=== PATIENT | female | born 2005 | race Caucasian/White ===

== ENCOUNTER 2024-10-08 00:55 | Emergency (ER) | payer MEDICAID, SELFPAY ==
[2024-10-08 00:55] VITALS: BMI 22.7
[2024-10-08 01:36] VITALS: BP 121/71; PULSE 84; RESP 18; TEMP 36.6; O2SAT 98
--- NOTE | 2024-10-08 01:36 | XR_ITS ---
Examination: CT brain head without contrast. 2-D sagittal coronal reconstructions Date and time of exam:October 08, 2024 at 0157 hrs. Indications: Injury to the forehead today Left-sided head pain CTDI: vol (mGy):45.5 DLP: (mGycm):969 Technique: Multiple CT axial sections of the brain have been obtained, 5 mm slice thickness. Contrast has not been administered. 2-D sagittal, coronal reconstructions have been obtained Low dose protocols were performed. One or more of the following dose reduction techniques were used; automated exposure control, adjustment of the mA and/or KV according to patient size, use of iterative reconstruction technique. Findings: No significant ventricular enlargement. Intra-axial or extra-axial hemorrhage density is not seen. No mass effect or midline shift Basal cisterns are not remarkable. Fourth ventricle is midline. Cranial vault intact. Acute maxillary sinusitis Impression: Negative for acute hemorrhage, mass effect or midline shift
--- NOTE | 2024-10-08 01:37 | PD.EDHEAD ---
ED Head Injury RME/HPI General Chief complaint: Head Injury Stated complaint: HEAD INJURY Time Seen by Provider: 10/08/24 01:10 Arrival date/time: 10/08/24 00:55 19 year old female present to emergency room with c/o of head injury while moving furniture. patient report + LOC. denies any nausea,vomiting, neck pain/injury LOCATION: top of scalp SEVERITY: Symptoms are described as being severe with limitations on activities of daily living QUALITY: Symptoms are described as being dull or achy CONTEXT: hit top of head, + loc <1 minute DURATION/TIMING: The symptoms started approximately [one hour] ago and have been constant this then. ASSOCIATED SYMPTOMS: The patient is unable to identify any other associated symptoms. MODIFYING FACTORS: The patient is unable to identify any alleviating or aggravating symptoms. PERTINENT ROS: No associated syncope or presyncope, [not] on anticoagulant use, no associated focal neurological deficits, denies associated neck pain, no recent fevers, no unexplained rashes, no recent foreign travel, immunized, no unexplained nausea or vomiting. REVIEW OF SYSTEMS: See History of Present Illness - with the exception of those mentioned in the history of present illness, all other systems reviewed and reported as negative GENERAL: In general the patient is awake, interactive, in an emergency department gurney. HEAD/EYES/EARS/NOSE/THROAT: normo-cephalic, atraumatic, mucus membranes are moist, anicteric, palpebral conjunctiva is pink, trachea is midline. CARDIOVASCULAR: regular rate and regular rhythm, no murmurs, heart sounds are not distant, strong pulses in all four extremities that are equal and symmetric bilateral upper and lower extremities, normal capillary refill. CHEST/PULMONARY: normal chest rise and fall, good air movement, clear to auscultation bilaterally, normal inspiratory to expiratory ratios without evidence of respiratory distress. NECK: No midline/Paraspinal tenderness, no step off ROM/Strenght intact No Kernig and bruzinski sign. No trauma ABDOMEN: soft, not tender, no masses appreciated BACK: normal range of motion without pain. NEUROLOGICAL: cranio-facial features are symmetric, moves all four extremities equally without obvious limitations or weakness. EXTREMITY: no tenderness to palpation over the long bones or large joints of the bilateral upper and lower extremities, no joint swelling, no joint erythema, no signs of trauma, no unilateral leg swelling and no peripheral edema. SKIN: warm, dry, well-perfused, no jaundice, no rash, no telangiectasias or petechia. PSYCH: calm, cooperative, no evidence of psychosis or agitation Related Data Previous Rx's ?Medication ?Instructions ?Recorded ibuprofen 400 mg tablet 400 mg PO TID #20 tabs 08/04/17 Allergies Allergy/AdvReac Type Severity Reaction Status Date / Time No Known Allergies Allergy Verified 10/08/24 00:59 Course Course Course Narrative: Patient presenting with head trauma.? Patient's neurological exam was non-focal and unremarkable.? [place] Head CT Rule was applied and patient did not fall into the low risk category so a head CT was obtained.? This showed no significant findings.? At this time, it is felt that the most likely explanation for the patient's symptoms is concussion.? ?I also considered SAH, SDH, Epidural Hematoma, IPH, skull fracture, migraine but this appears less likely considering the data gathered thus far.? ?Patient provided tylenol? Patient remained stable and neurologically intact while in the emergency department.? Discussed warning signs that would prompt return to ED.? Head trauma handout was provided.? Discussed in detail concussion management.? No sports or strenuous activity until symptoms free.? Return to emergency department urgently if new or worsening symptoms develop.?? Plan? Discharge from ED Tylenol for pain control. Avoid aspirin, NSAIDs, or other blood thinners. Advised patient on supportive measures for cognitive rest - avoid use of cognitive function for at least? hours.? This means no tv, books, texting, computers, etc. Limit visitors to the house.? Head trauma instructions provided in discharge instructions Instructed Pt to monitor for neurologic symptoms, severe ROYAL, change in mental status, seizures, loss of conciousness. Instructed Pt to f/up w/ PCP in 2 days or ETC should symptoms worsen or not improve. Pt verbally expressed understanding and all questions were addressed to Pt's satisfaction. Quality Measures none Orders Category Date Time Status CT head/brain wo con Stat Exams 10/08/24 01:36 Taken Acetaminophen Tab [Tylenol Tab] Med 10/08/24 01:39 Discontinued 650 mg PO X1 ONE Ondansetron Odt [Zofran Odt] Med 10/08/24 01:39 Discontinued 4 mg PO X1 ONE Vital Signs Vital signs: Vital Signs Temperature 98 F 10/08/24 01:36 Pulse Rate 84 10/08/24 01:36 Respiratory Rate 18 10/08/24 01:36 Blood Pressure 121/71 10/08/24 01:36 Pulse Oximetry (%) 98 10/08/24 01:36 Oxygen Delivery Method Room Air 10/08/24 01:36 Head Injury Patient data External records reviewed:: [facility] previous records Clinical information provided by:: patient Social determinants that could affect healthcare access:: none Patient has the following chronic illnesses:: n/a How is presenting disease/condition affected by chronic disease/condition?: no chronic disease Evaluation data The following diagnostics were reviewed and interpreted by me:: radiology exam(s) Lab and/or radiology exams considered but not ordered:: n/a Interpretation Summary: CT: no acute findings Medications / Prescriptions Medications or Prescriptions considered but not ordered:: n/a Medication administrations:: Medication Administration History Discontinued Medications Acetaminophen (Acetaminophen 325 Mg Tablet) 650 mg PO X1 ONE Stop: 10/08/24 01:40 Last Admin: 10/08/24 02:06 Dose: 650 mg Documented By: BEE Ondansetron HCl (Ondansetron Odt 4 Mg Tabrap) 4 mg PO X1 ONE; Protocol Stop: 10/08/24 01:40 Last Admin: 10/08/24 02:09 Dose: 4 mg Documented By: BEE n/a Consultations Consultation(s) initiated? (list below): No Diagnosis Differential diagnosis head injury: concussion without loss of consciousness, closed head injury, postconcussion syndrome and subdural hematoma Most likely diagnosis given after review of the tests above:: head injury Admission Indicated Admission indicated?: not indicated Admission Request Was there a request for admission?: No Disposition Plan Disposition Plan: Discharge Discharge Attestation Discharge Attestation: The patient and all family members were given an opportunity to ask questions and understood the discharge instructions. Discharge instructions specifically effects, indications for sooner follow up or return to the emergency department, and the expected course of current diagnosis. Patient condition: Stable Discharge Plan Plan Patient Disposition: HOME (Self Care) Health Concerns: Follow with PMD as directed Take tylenol or motrin as need Return to ED if sx worsen Prescriptions/Referrals Prescriptions/Med Rec: No Action ibuprofen 400 mg tablet 400 mg PO TID Qty: 20 0RF Problem List Clinical Impression: Closed head injury Patient/Caregiver Discharge Instructions Education Materials: ED Head Injury (Adult) Print Language: [place] Stand Alone Forms: [employer] Award Info., Patient Portal Info Letter
[2024-10-08] MEDS: ACETAMINOPHEN 325 MG TABLET 650 MG PO (02:06)
[2024-10-08] MEDS: ONDANSETRON ODT 4 MG TABRAP PO (02:09)
--- NOTE | 2024-10-08 02:34 | PRELIM_ITS ---
CT scan of the head without intravenous contrast (axial sections with sagittal and coronal reformats) October 08, 2024 0156 hours Clinical History: Head injury + LOC Radiation Dose: Total exam DLP 956 mGy/cm Comparison: No prior study is available for comparison. Findings: No evidence of intracranial hemorrhage, mass effect or midline shift. The ventricles and CSF spaces are unremarkable. The calvarium is intact. There is moderate mucosal thickening in bilateral maxillary, ethmoid and mild in the right frontal and sphenoid sinuses. The mastoid air cells and the other vis ualized paranasal sinuses are clear. Impression: No evidence of intracranial hemorrhage, midline shift or calvarial fracture. Other findings as described above. Report Electronically Signed By: José Miguel Herrera 10/08/2024 2:33:48 AM [EST]
[2024-10-08 03:20] VITALS: BP 125/86; PULSE 78; RESP 19; TEMP 36.6; O2SAT 99
== END 2024-10-08 03:23 | disposition home or self-care (01) ==
PROVIDERS: Emergency Provider Emergency Medicine
DX: S06.9X9A Unspecified intracranial injury with loss of consciousness of unspecified duration, initial encounter (principal); X58.XXXA Exposure to other specified factors, initial encounter; Y93.E9 Activity, other interior property and clothing maintenance
CPT/HCPCS: 70450; 99284; Q0162; A9270